=== PATIENT | male | born 1960 | race Hispanic/Latino ===

== ENCOUNTER 2017-09-01 00:10 | Emergency (ER) | payer SELFPAY ==
--- NOTE | 2017-09-01 01:02 | ER ---
Nurse's Notes [facility] Name: Tr Enriquez Age: 57 yrs Sex: Male : 1960 Arrival Date: 09/01/2017 Time: 00:18 Bed 14 Private MD: Diagnosis: Insect bite (nonvenomous) of hand Presentation: 09/01 00:43 Presenting complaint: Patient states: He was stung my an insect at 5 pm yesterday, ea patient reports initially it was stinging but now there is no pain just swelling. Transition of care: patient was not received from another setting of care. Onset of symptoms was August 31, 2017. Care prior to arrival: None. 00:43 Method Of Arrival: Ambulatory ea 00:43 Acuity: SEYMOUR 5 ea Triage Assessment: 00:46 General: Appears in no apparent distress. Behavior is calm, cooperative, appropriate ea for age. Pain: Denies pain. Neuro: Level of Consciousness is awake, alert, obeys commands, Oriented to person, place, time. Cardiovascular: Patient's skin is warm and dry. Respiratory: Airway is patent Respiratory effort is even, unlabored, Respiratory pattern is regular, symmetrical. GI: No signs and/or symptoms were reported involving the gastrointestinal system. : No signs and/or symptoms were reported regarding the genitourinary system. Derm: swelling noted to right pointer finger. Historical: - Allergies: 00:46 PENICILLINS; ea - Home Meds: 00:46 None [Active]; ea - PMHx: 00:46 None; ea - PSHx: 00:46 None; ea - Immunization history:: Adult Immunizations up to date. - Social history:: Smoking status: Patient/guardian denies using tobacco. Screenin:48 Abuse screen: Denies threats or abuse. Nutritional screening: No deficits noted. ea Tuberculosis screening: No symptoms or risk factors identified. Fall Risk None identified. Vital Signs: 00:48 BP 168 / 87; Pulse 70; Resp 18; Temp 98; Pulse Ox 100% ; Weight 77.11 kg; Height 5 ft. ea 8 in. (172.72 cm); Pain 0/10; 01:20 BP 150 / 87; Pulse 68; Resp 18; Temp 98.7(O); Pulse Ox 98% on R/A; Pain 0/10; ea 00:48 Body Mass Index 25.85 (77.11 kg, 172.72 cm) ea ED Course: 00:18 Patient arrived in ED. ds1 00:26 [facility] snw 00:26 Layton Mcclellan MD is Attending Physician. snw 00:30 Patient has correct armband on for positive identification. Bed in low position. Call ea light in reach. Side rails up X 1. 00:30 Patient placed in an exam room, on a stretcher, on groundwater monitoring technician, on pulse oximetry. ea 00:42 Gia Olea, RN is Primary Nurse. ea 00:45 Triage completed. ea 00:49 No provider procedures requiring assistance completed. ea 01:22 Patient did not have IV access during this emergency room visit. ea Administered Medications: 01:11 Drug: Bactrim (160 mg-800 mg (DS) 1 tablet Route: PO; ea 01:23 Follow up: Response: No adverse reaction ea Outcome: 01:02 Discharge ordered by . snw 01:21 Condition: improved ea 01:21 Discharge instructions given to patient, Instructed on discharge instructions, follow up and referral plans. medication usage, Demonstrated understanding of instructions, follow-up care, medications, Prescriptions given X 1. 01:27 Discharged to home ambulatory. ea 01:29 Patient left the ED. ea Signatures: Barbara Lobo FNP-C HEAD OF TALENT MANAGEMENT-[facility] Melanie Dixon ds1 Gia Olea RN RN ea
--- NOTE | 2017-09-01 01:03 | EDPHYS ---
Physician Documentation [facility] Name: Tr Enriquez Age: 57 yrs Sex: Male : 1960 Arrival Date: 09/01/2017 Time: 00:18 Bed 14 Private MD: ED Physician Layton Mcclellan HPI: 09/01 00:43 This 57 yrs old Male presents to ER via Unassigned with complaints of sting to snw right index finger. 00:43 The patient or guardian reports a bite, by an insect. The complaints affect the PIP of snw right index finger. Context: The problem was sustained at home, resulted from an unknown cause. Onset: The symptoms/episode began/occurred suddenly, at 17:30, became swollen. Associated signs and symptoms: The patient has no apparent associated signs or symptoms. Severity of symptoms: At their worst the symptoms were very mild, mild. The patient has not experienced similar symptoms in the past. area to dorsal index finger with mild erythema and edema. Historical: - Allergies: 00:46 PENICILLINS; ea - Home Meds: 00:46 None [Active]; ea - PMHx: 00:46 None; ea - PSHx: 00:46 None; ea - Immunization history:: Adult Immunizations up to date. - Social history:: Smoking status: Patient/guardian denies using tobacco. ROS: 01:03 Constitutional: Negative for fever, chills, and weight loss, Eyes: Negative for injury, snw pain, redness, and discharge, ENT: Negative for injury, pain, and discharge, Neck: Negative for injury, pain, and swelling, Cardiovascular: Negative for chest pain, palpitations, and edema, Respiratory: Negative for shortness of breath, cough, wheezing, and pleuritic chest pain, Abdomen/GI: Negative for abdominal pain, nausea, vomiting, diarrhea, and constipation, Back: Negative for injury and pain, : Negative for injury, bleeding, discharge, and swelling, MS/Extremity: Negative for injury and deformity, Neuro: Negative for headache, weakness, numbness, tingling, and seizure. 01:03 Skin: Positive for erythema, swelling, of the PIP of right index finger. Exam: 01:03 Constitutional: This is a well developed, well nourished patient who is awake, alert, snw and in no acute distress. Head/Face: Normocephalic, atraumatic. Eyes: Pupils equal round and reactive to light, extra-ocular motions intact. Lids and lashes normal. Conjunctiva and sclera are non-icteric and not injected. Cornea within normal limits. Periorbital areas with no swelling, redness, or edema. ENT: Nares patent. No nasal discharge, no septal abnormalities noted. Tympanic membranes are normal and external auditory canals are clear. Oropharynx with no redness, swelling, or masses, exudates, or evidence of obstruction, uvula midline. Mucous membranes moist. Neck: Trachea midline, no thyromegaly or masses palpated, and no cervical lymphadenopathy. Supple, full range of motion without nuchal rigidity, or vertebral point tenderness. No Meningismus. Chest/axilla: Normal chest wall appearance and motion. Nontender with no deformity. No lesions are appreciated. Cardiovascular: Regular rate and rhythm with a normal S1 and S2. No gallops, murmurs, or rubs. Normal PMI, no JVD. No pulse deficits. Respiratory: Lungs have equal breath sounds bilaterally, clear to auscultation and percussion. No rales, rhonchi or wheezes noted. No increased work of breathing, no retractions or nasal flaring. Abdomen/GI: Soft, non-tender, with normal bowel sounds. No distension or tympany. No guarding or rebound. No evidence of tenderness throughout. Back: No spinal tenderness. No costovertebral tenderness. Full range of motion. MS/ Extremity: Pulses equal, no cyanosis. Neurovascular intact. Full, normal range of motion. Neuro: Awake and alert, GCS 15, oriented to person, place, time, and situation. Cranial nerves II-XII grossly intact. Motor strength 5/5 in all extremities. Sensory grossly intact. Cerebellar exam normal. Normal gait. Psych: Awake, alert, with orientation to person, place and time. Behavior, mood, and affect are within normal limits. 01:03 Skin: Appearance: normal except for affected area, swelling, noted on the PIP of right index finger, that are mild. Vital Signs: 00:48 BP 168 / 87; Pulse 70; Resp 18; Temp 98; Pulse Ox 100% ; Weight 77.11 kg; Height 5 ft. ea 8 in. (172.72 cm); Pain 0/10; 01:20 BP 150 / 87; Pulse 68; Resp 18; Temp 98.7(O); Pulse Ox 98% on R/A; Pain 0/10; ea 00:48 Body Mass Index 25.85 (77.11 kg, 172.72 cm) ea MDM: 00:26 Patient medically screened. snw 01:03 Data reviewed: vital signs, nurses notes. Data interpreted: Pulse oximetry: on room air snw is 100 %. Interpretation: normal. Counseling: I had a detailed discussion with the patient and/or guardian regarding: the historical points, exam findings, and any diagnostic results supporting the discharge/admit diagnosis, the presence of at least one elevated blood pressure reading (>120/80) during this emergency department visit, the need for outpatient follow up, to return to the emergency department if symptoms worsen or persist or if there are any questions or concerns that arise at home. Special discussion: I have referred the patient to see his PCP for further evaluation of high blood pressure. Based on the history and exam findings, there is no indication for further emergent testing or inpatient evaluation. I discussed with the patient/guardian the need to see the primary care provider for further evaluation of the symptoms. Administered Medications: 01:11 Drug: Bactrim (160 mg-800 mg (DS) 1 tablet Route: PO; ea 01:23 Follow up: Response: No adverse reaction [email or web address] Disposition: 06:15 Co-signature as Attending Physician, Layton Mcclellan MD. Disposition: 09/01/17 01:02 Discharged to Home. Impression: Insect bite (nonvenomous) of hand. - Condition is Stable. - Discharge Instructions: Insect Bite, Wound Care, [id number]. - Prescriptions for Bactrim DS 800- 160 mg Oral Tablet - take 1 tablet by ORAL route every 12 hours for 10 days; 20 tablet. - Medication Reconciliation Form, Thank You Letter, Antibiotic Education, Prescription Opioid Use, Work release form form. - Follow up: Private Physician; When: 2 - 3 days; Reason: Recheck today's complaints, Continuance of care, Re-evaluation by your physician. Follow up: Emergency Department; When: As needed; Reason: Worsening of condition. Signatures: Barbara Lobo, JOHN-C SPIN T[employer] TENDER-[facility] Olea, Gia, RN RN ea Mcclellan, Layton, MD MD gs
[2017-09-01] MEDS ORDERED: SMZ./TMP. 800/160 MG TABLET ONE (01:28)
== END 2017-09-01 01:29 | disposition home or self-care (01) ==
LOC: ER 00:10
DX: S60.460A Insect bite (nonvenomous) of right index finger, initial encounter (principal); Y92.009 Unspecified place in unspecified non-institutional (private) residence as the place of occurrence of the external cause; Z88.0 Allergy status to penicillin
CPT/HCPCS: 99283